=== PATIENT | female | born 1990 | race Caucasian/White ===

== ENCOUNTER 2017-06-24 18:46 | Emergency (ER) | payer MEDICAID ==
[~2017-06-24] VITALS: Ht 167.6 cm; Wt 109.0 kg
[2017-06-24] MEDS ORDERED: IBUPROFEN 800MG TABLET PO ONE (22:45)
[2017-06-24] MEDS ORDERED: CYCLOBENZAPRINE 10MG TABLET PO ONE (22:45)
[2017-06-24 23:15] VITALS: BP 115/61
== END 2017-06-24 23:16 | disposition home or self-care (01) ==
LOC: ER 19:29
DX: S16.1XXA Strain of muscle, fascia and tendon at neck level, initial encounter (principal); S39.012A Strain of muscle, fascia and tendon of lower back, initial encounter; V49.88XA Car occupant (driver) (passenger) injured in other specified transport accidents, initial encounter; Y93.89 Activity, other specified; Y92.410 Unspecified street and highway as the place of occurrence of the external cause; Y99.8 Other external cause status
CPT/HCPCS: 81025; 99283; Z7610